=== PATIENT | male | born 1970 | race Caucasian/White ===

== ENCOUNTER 2016-10-24 16:15 | Outpatient (CLI) | payer OTHER ==
--- NOTE | 2016-10-27 11:28 | DIAGNOSTIC IMAGING REPORT ---
PROCEDURE: CT ABD/PELVIS WITH CONTRAST INDICATION: Chronic diffuse abdominal pain. Intermittent constipation. Hematochezia. TECHNIQUE: 125 ml of Isovue 300 were injected intravenously and axial images were obtained of the entire abdomen and pelvis with sagittal and coronal reformations. COMPARISON: Comparison is made to CT abdomen and pelvis on 06/07/2015. FINDINGS: ABDOMEN: Gallbladder is contracted (with mild ingested material in the stomach). The liver, spleen, pancreas, kidneys, and aorta are normal. Bowel pattern is normal. There is a moderate central disc herniation at L2-3 with moderate narrowing of the spinal canal. PELVIS: Findings suggest radiopaque material within the appendix (located in the right pelvis). However, there is no evidence of inflammation and no evidence of free fluid. There is mild enlargement prostate (is 4.8 cm) with central dystrophic calcifications. IMPRESSION: 1. Contracted gallbladder (most likely reflection of ingested material in the stomach). 2. Findings suggest radiopaque densities in the appendix (located in the pelvis) which may represent ingested material or chronic appendicoliths. No evidence of inflammatory process. 3. 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 Consider L3 radiculopathy. 4. Mild enlargement prostate. All CT scans at this facility use dose modulation, iterative reconstruction, and/or weight-based dosing when appropriate to reduce radiation dose to as low as reasonably achievable.
== END 2016-10-24 23:00 | disposition home or self-care (01) ==
LOC: CT SRH 16:15
DX: R10.9 Unspecified abdominal pain (principal); R11.10 Vomiting, unspecified; K92.1 Melena